=== PATIENT | female | born 1955 | race Caucasian/White ===

== ENCOUNTER 2017-10-28 10:56 | Day surgery (SDC) | payer OTHER ==
[2017-10-28] MEDS ORDERED: LACTATED RINGERS 1,000 ML IV ONE (10:58)
[2017-10-28] MEDS ORDERED: MIDAZOLAM 2 MG/2 ML VIAL IVP ONE (12:17)
[2017-10-28] MEDS ORDERED: fentaNYL 100 MCG/2 ML VIAL IVP ONE (12:17)
[2017-10-28 13:16] VITALS: BP 114/62
== END 2017-10-28 10:57 | disposition home or self-care (01) ==
LOC: SDS 10:56
PROVIDERS: ATTEND Internal Medicine
PROC: 0DBN8ZX Excision of Sigmoid Colon, Via Natural or Artificial Opening Endoscopic, Diagnostic (ICD-10-PCS; principal; 2017-10-28 12:00)
DX: Z12.11 Encounter for screening for malignant neoplasm of colon (principal); D12.5 Benign neoplasm of sigmoid colon; K64.8 Other hemorrhoids; K63.89 Other specified diseases of intestine
CPT/HCPCS: 45385; J7120

== ENCOUNTER 2019-03-02 08:00 | Outpatient (CLI) | payer OTHER ==
[2019-03-02 17:45] LABS: BASOPHILS % (AUTO) 0.4 %; EOSINOPHILS # (AUTO) 0.1 10^3/uL (0.0-0.7); EOSINOPHILS % (AUTO) 1.2 %; HGB - HEMOGLOBIN 12.9 g/dL (12.0-16.0); LYMPHOCYTES # (AUTO) 1.2 10^3/uL (1.5-3.5); LYMPHOCYTES % (AUTO) 21.3 %; MEAN CORPUSCULAR HEMOGLOBIN 29.4 pg (27.0-31.0); MEAN CORPUSCULAR HGB CONC 32.5 g/dL (32.0-36.0); MEAN CORPUSCULAR VOLUME 90.5 fL (81.0-99.0); MONOCYTES # (AUTO) 0.6 10^3/uL (0.0-1.0); MONOCYTES % (AUTO) 10.2 %; NEUTROPHILS # (AUTO) 3.9 10^3/uL (1.5-6.6); NEUTROPHILS % (AUTO) 66.9 %; PLT - PLATELET COUNT 344 10^3/uL (130-450); RED CELL DISTRIBUTION WIDTH 13.7 % (12.0-15.0); WHITE BLOOD COUNT 5.8 x10^3/uL (4.8-10.8)
[2019-03-02 17:58] LABS: ALBUMIN 3.6 g/dL (3.2-5.5); ALBUMIN/GLOBULIN RATIO 1.2 (1.0-2.2); BILIRUBIN,TOTAL 0.4 mg/dL (0.2-1.0); CREATININE 0.6 mg/dL (0.4-1.0); TOTAL PROTEIN 6.5 g/dL (6.7-8.2)
== END 2019-03-02 23:59 | disposition home or self-care (01) ==
LOC: LAB.F 08:00
PROVIDERS: ATTEND Nurse Practitioner Family
DX: F41.9 Anxiety disorder, unspecified (principal)
CPT/HCPCS: 36415; 80053; 84443; 84481; 85025

== ENCOUNTER 2019-03-05 14:44 | Outpatient (CLI) | payer OTHER | END 2019-03-05 14:45 | disposition home or self-care (01) | LOC: RT 14:44 | PROVIDERS: ATTEND Nurse Practitioner Family | DX: R06.02 Shortness of breath (principal) | CPT/HCPCS: 93005 ==

== ENCOUNTER 2019-03-31 13:44 | Outpatient (CLI) | payer OTHER ==
--- NOTE | 2019-03-31 15:48 | CARDIAC PROCEDURE NOTE ---
DATE OF SERVICE: 03/31/2019 Physician: Jocelyn Méndez MD, [facility] INDICATION: Shortness of breath. CARDIAC RISK FACTORS: Postmenopausal status, possibly untreated hypertension, unknown cholesterol history, family history of heart disease. DESCRIPTION OF PROCEDURE: After signing informed consent, the patient underwent a Aleksander-protocol treadmill stress test. No imaging was ordered with this test. RESTING HEART RATE SITTIN. RESTING HEART RATE STANDIN. PEAK HEART RATE ACHIEVED WITH EXERCISE: 122 (77% predicted maximum heart rate for age). RESTING BLOOD PRESSURE SITTIN/87. RESTING BLOOD PRESSURE STANDIN/80. PEAK BLOOD PRESSURE ACHIEVED WITH EXERCISE: 188/70. The patient exercised for 6 minutes on a Aleksander-protocol treadmill stress test. She achieved a peak heart rate of 122 (77% PMHR) and 7.1 METS. The patient developed shortness of breath after 2 minutes of walking at stage 1. As she entered stage 2, she asked if she could "grunt, which helps her exercise". She described her perceived exertion at 14-15/20 on a Elizabet scale at peak. Oxygen saturation was 95% on room air at rest. As she first describes shortness of breath, at 2 minutes of exercise, her oxygen saturation dropped to 90% on room air. In the second stage, her oxygen saturation dropped to 86% on room air. The exercise was stopped because of desaturations. In recovery, her oxygen saturation was 87% at 1 minute and at 95% on room air by 2 minutes. Heart rate recovery was very slow: at 5 minutes post-exercise she was still tachycardic at a heart rate of 103. The blood pressure response was excessive, and the patient thinks it was from "being very nervous." She was tearful and crying during the exercise briefly. EKG AT REST: Normal sinus rhythm, rate 81, vertical QRS axis, flat T-waves in leads III and aVF, LVH voltage. EKG AT PEAK: Upsloping ST depressions in V4 through V6 (this is not specific for ischemia). SUMMARY 1. Abnormal resting EKG. 2. The patient developed shortness of breath early with exercise, and had documented desaturation to 86% on room air. She was only able to achieve 77% predicted maximum heart rate for age because of the shortness of breath and desaturations. Poor exercise tolerance. 3. No ischemic changes occurred at this level of exertion, however, this was not an adequate heart rate achieved to definitively rule out ischemic heart disease, ie. Non-diagnostic stress test. 4. Her baseline EKG shows a vertical axis and given her symptoms and desaturation, this is suggestive of significant pulmonary disease or an intracardiac shunt. Recommend further cardiac and pulmonary evaluation. 5. I called the patient's PCP and left a private, urgent voicemail to discuss these results. TD: 03/31/2019 14:50 MTDD
== END 2019-03-31 13:45 | disposition home or self-care (01) ==
LOC: DI 13:44
PROVIDERS: ATTEND Nurse Practitioner Family
DX: R06.02 Shortness of breath (principal); R94.31 Abnormal electrocardiogram [ECG] [EKG]
CPT/HCPCS: 93016; 93017; 93018

== ENCOUNTER 2019-04-03 14:25 | Emergency (ER) | payer OTHER ==
--- NOTE | 2019-04-03 15:33 | ED Physician Documentation ---
PD HPI DYSPNEA - Stated complaint Stated Complaint: SOA/ABD PX - Chief complaint Chief Complaint: Resp - History obtained from History obtained from: Patient, Family - History of Present Illness Timing - onset: How many months ago (2) Timing - onset during: Light activity Timing - duration: Months (2) Timing - details: Gradual onset, Still present Inciting event(s): Emotional event. No: URI Improved by: Rest Worsened by: Exertion Associated symptoms: Cough, Wheezing, Chest pain / discomfort Similar symptoms before: Has not had sx before Recently seen: Other - Additional information Additional information: 63-year-old female has developed increasing exertional dyspnea over the past 2 months and now she is not able to go more than 100 yards without having to come back home. She usually has been able to walk about 4 miles. She has been in to see Dr. Mauro here for exercise treadmill test about 3 days ago and the test was nondiagnostic as she desaturated with minimal exercise. The patient states that she does have a cough and does feel like she is having some trouble getting a full deep breath and she is being referred to a program aide group work for further work-up. She has not had an x-ray of her chest and she has not had pulmonary function tests or used an inhaler. She is worried about lung cancer as she has a feeling of something in her chest and she has lost weight. She also gives history of a daughter who is significantly disabled who is now living on her own in the [facility] as a transfer student. This is working well for the daughter but the patient herself is anxious about this. 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 Review of Systems Constitutional: reports: Fatigue, Weight Loss. denies: Fever Eyes: denies: Decreased vision Ears: denies: Ear pain Nose: denies: Congestion Throat: denies: Sore throat Cardiac: reports: Chest pain / pressure. denies: Palpitations, Pedal edema, Calf pain Respiratory: reports: Dyspnea, Cough, Wheezing. denies: Hemoptysis GI: denies: Abdominal Pain, Nausea, Vomiting : denies: Dysuria, Frequency Skin: denies: Rash Musculoskeletal: denies: Neck pain, Back pain, Extremity pain Neurologic: denies: Generalized weakness, Focal weakness, Numbness PD PAST MEDICAL HISTORY - Past Medical History Cardiovascular: None Respiratory: None Endocrine/Autoimmune: None GI: None : None Psych: Anxiety Musculoskeletal: None Derm: None - Present Medications Home Medications: Ambulatory Orders Medication Instructions Recorded Confirmed Multivitamin-Min/Iron/FA/Vit K 1 each PO DAILY 10/28/17 10/28/17 [Multi-Day Plus Minerals Tablet] - Allergies Allergies/Adverse Reactions: Allergies Allergy/AdvReac Type Severity Reaction Status Date / Time No Known Drug Allergies Allergy Verified 10/27/17 13:56 PD ED PE NORMAL - Vitals Vital signs reviewed: Yes (tachy and hypertensive) - General General: Alert and oriented X 3, Well developed/nourished, Other (Thin female that cries readily ) - HEENT HEENT: Atraumatic, PERRL, EOMI - Neck Neck: Supple, no meningeal sign, No bony TTP - Cardiac Cardiac: No murmur, Other (tachy ) - Respiratory Respiratory: No respiratory distress, Other (diminished breath sounds on right to the shoulder. ) - Abdomen Abdomen: Soft, Non tender - Back Back: No CVA TTP, No spinal TTP - Derm Derm: Normal color, Warm and dry, No rash - Extremities Extremities: No deformity, No edema - Neuro Neuro: Alert and oriented X 3, broke worker 2-12 intact, No motor deficit, No sensory deficit, Normal speech Eye Opening: Spontaneous Motor: Obeys Commands Verbal: Oriented GCS Score: 15 - Psych Psych: Other (mood is anxious and the affect is sad/labile) Results - Vitals Vitals: Vital Signs - 24 hr 04/03/19 04/03/19 04/03/19 14:27 17:30 19:00 Temperature 36.8 C Heart Rate 103 H 89 Respiratory 18 20 Rate Blood Pressure 162/98 H 129/92 H 171/91 H O2 Saturation 99 97 04/03/19 04/03/19 04/03/19 19:12 19:14 19:15 Temperature Heart Rate 113 H 85 108 H Respiratory 18 Rate Blood Pressure 128/88 H 165/99 H O2 Saturation 95 98 100 Oxygen O2 Source Room air - EKG (time done) 1432 Rate: Rate (enter#) (97) [place]: RAD QRS: LVH Ischemia: Non specific changes Compare to prior EKG: Changed from prior EKG (SPT 03-05-2019 LVH and RAD have occurred. ) Computer interpretation: Agree with computer - Labs Labs: Microbiology 04/03/19 17:25 Body Fluid Culture - Preliminary Thoracentesis Laboratory Tests 04/03/19 04/03/19 04/03/19 15:30 15:30 15:30 WBC 7.2 RBC 4.63 Hgb 13.4 Hct 41.7 MCV 90.1 MCH 28.9 MCHC 32.1 RDW 12.7 Plt Count 452 H MPV 8.7 Neut # (Auto) 4.8 Lymph # (Auto) 1.7 [place] # (Auto) 0.6 Eos # (Auto) 0.1 Baso # (Auto) 0.0 Absolute Nucleated RBC 0.00 Nucleated RBC % 0.0 Sodium 133 L Potassium 4.1 Chloride 96 L Carbon Dioxide 24 Anion Gap 13.0 BUN 13 Creatinine 0.6 Estimated GFR (MDRD) 101 Glucose 166 H Calcium 9.0 Total Bilirubin < 0.2 L AST 21 ALT 28 Alkaline Phosphatase 125 H Lactate Dehydrogenase Troponin I < 0.04 B-Natriuretic Peptide Total Protein 7.1 Albumin 3.6 Globulin 3.5 Albumin/Globulin Ratio 1.0 Lipase 28 Urine Color Urine Clarity Urine pH Ur Specific [place] Urine Protein Urine Glucose (UA) Urine Ketones Urine Occult Blood Urine Nitrite Urine Bilirubin Urine Urobilinogen Ur Leukocyte Esterase Ur Microscopic Review Urine Culture Comments Fluid Source Fluid Color Fluid Clarity Fluid WBC Fluid RBC Fluid Neutrophils % Fluid Lymphocytes % Fld Mesothelial Cell % 04/03/19 04/03/19 04/03/19 15:30 15:30 16:00 WBC RBC Hgb Hct MCV MCH MCHC RDW Plt Count MPV Neut # (Auto) Lymph # (Auto) [place] # (Auto) Eos # (Auto) Baso # (Auto) Absolute Nucleated RBC Nucleated RBC % Sodium Potassium Chloride Carbon Dioxide Anion Gap BUN Creatinine Estimated GFR (MDRD) Glucose Calcium Total Bilirubin AST ALT Alkaline Phosphatase Lactate Dehydrogenase 164 Troponin I B-Natriuretic Peptide 29 Total Protein Albumin Globulin Albumin/Globulin Ratio Lipase Urine Color YELLOW Urine Clarity CLEAR Urine pH 5.0 Ur Specific [place] >=1.030 H Urine Protein NEGATIVE Urine Glucose (UA) NEGATIVE Urine Ketones NEGATIVE Urine Occult Blood TRACE-INTA Urine Nitrite NEGATIVE Urine Bilirubin NEGATIVE Urine Urobilinogen 0.2 (NORMAL) Ur Leukocyte Esterase NEGATIVE Ur Microscopic Review NOT INDICATED Urine Culture Comments NOT INDICATED Fluid Source Fluid Color Fluid Clarity Fluid WBC Fluid RBC Fluid Neutrophils % Fluid Lymphocytes % Fld Mesothelial Cell % 04/03/19 17:25 WBC RBC Hgb Hct MCV MCH MCHC RDW Plt Count MPV Neut # (Auto) Lymph # (Auto) [place] # (Auto) Eos # (Auto) Baso # (Auto) Absolute Nucleated RBC Nucleated RBC % Sodium Potassium Chloride Carbon Dioxide Anion Gap BUN Creatinine Estimated GFR (MDRD) Glucose Calcium Total Bilirubin AST ALT Alkaline Phosphatase Lactate Dehydrogenase Troponin I B-Natriuretic Peptide Total Protein Albumin Globulin Albumin/Globulin Ratio Lipase Urine Color Urine Clarity Urine pH Ur Specific [place] Urine Protein Urine Glucose (UA) Urine Ketones Urine Occult Blood Urine Nitrite Urine Bilirubin Urine Urobilinogen Ur Leukocyte Esterase Ur Microscopic Review Urine Culture Comments Fluid Source PERITONEAL Fluid Color RED Fluid Clarity CLOUDY Fluid WBC 344 Fluid RBC [id number] Fluid Neutrophils % 8 Fluid Lymphocytes % 82 Fld Mesothelial Cell % 10 - Rads (name of study) CT chest with Radiology: Prelim report reviewed (Impression: Large right-sided pleural effusion with clear fluid attenuation, no septation or loculation. Significant costal, mediastinal and diaphragmatic pleural nodularity, concerning for pleural metastatic disease. Enlarged superior mediastinal and subcarinal lymph node. Near atelectasis of right lung. No intraoral bronchial mass or mucoid. A 6 mm scarlike nodular opacity in the subpleural left lower lobe, likely benign.), EMP read indepedently, See rad report chest post thoracentesis Radiology: Prelim report reviewed (Impression: No pneumothorax.), EMP read indepedently, See rad report Procedures - Thoracentesis Preparation: Consent obtained, Sterile prep and drape, Sitting, Local - lidocaine Technique: Catheter over needle, Intercostal space - enter (7), Midscapular line, Right Fluid: Bloody, Sent for cell count, Sent for gram stain, Sent for culture, Sent for LDH, Sent fluid:serum LDH, Sent fluid:serum protein, Sent for cytology Aftercare: CXR obtained, No pneumo, No complications, Patient tolerated well, Dressing applied - Bedside sono Bedside sono by EMP: With the use of bedside ultrasound the chest is imaged and there appears to be fluid in the right lung space to the shoulder. PD MEDICAL DECISION MAKING - ED course Complexity details: reviewed old records, reviewed results, re-evaluated patient, considered differential, d/w patient ED course: 63-year-old female with undifferentiated shortness of breath has had an exercise treadmill test which she failed for early desaturations and poor exercise performance and she arrives to the emergency department today with persistent exertional shortness of breath. On examination she has diminished breath sounds on the right side and bedside ultrasound shows pleural effusion to the shoulder. 1500ml of bloody pleural fluid are removed from the pleural cavity and sent for cytology with negative gram stain. The patient has improvement in breathing and the [facility] triage doctor is consulted for disposition and Dr. Montero is able to arrange for both IR and Oncology to contact the patient for follow up. The patient is improved at discharge. Departure - Departure Disposition: 01 Home, Self Care Clinical Impression: Pleural effusion on right Condition: Stable Instructions: ED Effusion Pleural Follow-Up: [facility] [Provider Group] [facility] [Provider Group] Comments: I spoke with Dr Montero at [facility]. He put in referrals for Oncology and Interventional Radiology. Both of these services should be contacting the patient, but he gave me the following phone numbers to share with her if she has not heard from them in the next few days. Onc: [phone] IR: [phone] Discharge Date/Time: 04/03/19 19:08
[2019-04-03 15:38] LABS: BASOPHILS % (AUTO) 0.4 %; EOSINOPHILS # (AUTO) 0.1 10^3/uL (0.0-0.7); EOSINOPHILS % (AUTO) 0.8 %; HGB - HEMOGLOBIN 13.4 g/dL (12.0-16.0); LYMPHOCYTES # (AUTO) 1.7 10^3/uL (1.5-3.5); MEAN CORPUSCULAR HEMOGLOBIN 28.9 pg (27.0-31.0); MEAN CORPUSCULAR HGB CONC 32.1 g/dL (32.0-36.0); MEAN CORPUSCULAR VOLUME 90.1 fL (81.0-99.0); MEAN PLATELET VOLUME 8.7 fL (7.9-10.8); MONOCYTES # (AUTO) 0.6 10^3/uL (0.0-1.0); MONOCYTES % (AUTO) 8.9 %; NEUTROPHILS # (AUTO) 4.8 10^3/uL (1.5-6.6); NEUTROPHILS % (AUTO) 66.8 %; PLT - PLATELET COUNT 452 10^3/uL (130-450); RED BLOOD COUNT 4.63 10^6/uL (4.20-5.40); RED CELL DISTRIBUTION WIDTH 12.7 % (12.0-15.0); WHITE BLOOD COUNT 7.2 x10^3/uL (4.8-10.8)
[2019-04-03 15:50] LABS: ALBUMIN 3.6 g/dL (3.2-5.5); ALKALINE PHOSPHATASE 125 IU/L (42-121); ALT ALANINE AMINOTRANSFERASE 28 IU/L (10-60); AST ASPARTATE AMINOTRANSFERASE 21 IU/L (10-42); BILIRUBIN,TOTAL < 0.2 mg/dL (0.2-1.0); BUN - BLOOD UREA NITROGEN 13 mg/dL (6-20); CARBON DIOXIDE - CO2 24 mmol/L (21-32); CHLORIDE 96 mmol/L (101-111); CREATININE 0.6 mg/dL (0.4-1.0); GFR - MDRD 101 (>89); GLUCOSE 166 mg/dL (70-100); LIPASE 28 U/L (22-51); SODIUM 133 mmol/L (135-145); TOTAL PROTEIN 7.1 g/dL (6.7-8.2)
[2019-04-03] MEDS ORDERED: IOVERSOL 320 100 ML VIAL IVP ONE ×2 (15:55→16:32)
[2019-04-03 16:10] LABS: BILIRUBIN,URINE NEGATIVE (NEGATIVE); GLUCOSE, URINE (UA) NEGATIVE (NEGATIVE); KETONES,URINE (UA) NEGATIVE (NEGATIVE); LEUKOCYTE ESTERASE, URINE NEGATIVE (NEGATIVE); NITRITE,URINE NEGATIVE (NEGATIVE); OCCULT BLOOD,URINE TRACE-INTA (NEGATIVE); PROTEIN,URINE NEGATIVE (NEGATIVE); UROBILINOGEN,URINE 0.2 (NORMAL) E.U./dL (NORMAL)
[2019-04-03 16:12] LABS: CLARITY,URINE CLEAR (CLEAR)
--- NOTE | 2019-04-03 17:03 | CT Report ---
Reason: R pleural effusion on bedside u/s Procedure Date: 04/03/2019 Accession Number: [id number] / [id number] Procedure: CT - CHEST W CPT Code: FULL RESULT: EXAM: CT CHEST EXAM DATE: 04/03/2019 04:30 PM. CLINICAL HISTORY: R pleural effusion on bedside u/s. COMPARISONS: CHEST W/WO 04/03/2019 4:07 PM. TECHNIQUE: Routine helical CT imaging was performed through the chest. IV contrast: None. Reconstructions: Coronal and sagittal. In accordance with CT protocol optimization, one or more of the following dose reduction techniques were utilized for this exam: automated exposure control, adjustment of mA and/or KV based on patient size, or use of iterative reconstructive technique. FINDINGS: Lungs/Pleura: A large right-sided pleural effusion with clear fluid attenuation noted. No septation or loculation. Near complete atelectasis of right lung noted per There is enhancing pleural nodularity along costal, mediastinal and diaphragmatic pleural surfaces. Nodules measure up to 2.5 cm. Nodules are seen on image 16, 31, 43, 49, 64 on series 3). A 6 mm scarlike nodular opacity seen in subpleural left lower lobe. (Image 43 on series 4). Mediastinum: Enlarged superior mediastinal lymph nodes seen, a larger pretracheal lymph node measures 16 mm. Enlarged subcarinal lymph node measures 13 mm. The heart and great vessels are normal. Bones: Unremarkable. Visualized Abdomen: Unremarkable. Other: None. IMPRESSION: Large right-sided pleural effusion with clear fluid attenuation, no septation or loculation. Significant costal, mediastinal and diaphragmatic pleural nodularity, concerning for pleural metastatic disease. Enlarged superior mediastinal and subcarinal lymph node. Near atelectasis of right lung. No intrabronchial mass or mucoid. A 6 mm scarlike nodular opacity in subpleural left lower lobe, likely benign. RADIA
[2019-04-03 18:00] LABS: BF COLOR RED; BF SOURCE PERITONEAL; CC,BF RBC 130000 /mm^3
--- NOTE | 2019-04-03 18:59 | ED Physician Documentation ---
ED Addendum - Addendum Addendum: 04/03/19 18:[address] Torres's note for primary history and physical. She was signed over to me at shift change pending follow-up call from [facility] to arrange for follow- up. I spoke with Dr Montero at [facility]. He put in referrals for Onc and IR. Both of these services should be contacting the patient, but he gave me the following phone numbers to share with her if she has not heard from them in the next few days. Onc: [phone] IR: [phone] She is discharged in stable condition
[2019-04-03 19:02] LABS: LYMPHOCYTES %,BODY FLUID 82; MESOTHELIAL %, BF 10 %
--- NOTE | 2019-04-03 19:14 | XRAY Report ---
Reason: post thoracentesis Procedure Date: 04/03/2019 Accession Number: [id number] / [id number] Procedure: XR - Chest 1 View X-Ray CPT Code: 25286 FULL RESULT: EXAM: CHEST RADIOGRAPHY EXAM DATE: 04/03/2019 05:38 PM. CLINICAL HISTORY: Post thoracentesis. COMPARISON: CHEST W/WO 04/03/2019 4:09 PM. TECHNIQUE: 1 view. FINDINGS: The right pleural effusion has decreased, now moderate in size. Reexpansion of the right upper lobe. No pneumothorax visualized. Right paraspinal/mediastinal soft tissue thickening is grossly similar. Left lung is clear. Normal heart size. IMPRESSION: No pneumothorax. RADIA
[2019-04-03] MEDS: DEXTROSE 5%-0.9% NACL 1,000 ML IV ONE ×2 (19:15→19:34)
[2019-04-03 19:16] VITALS: BP 165/99
== END 2019-04-03 19:08 | disposition home or self-care (01) ==
LOC: ED 14:25
DX: J90 Pleural effusion, not elsewhere classified (principal)
CPT/HCPCS: 32554; 36415; 71045; 71260; 80053; 81003; 81599; 83615; 83690; 83880; 84484; 85025; 87070; 87205; 89051; 93005; 99284; Q9967; 81001; 87086

== ENCOUNTER 2019-04-21 11:45 | Outpatient (CLI) | payer OTHER ==
[2019-04-21 17:20] LABS: BASOPHILS % (AUTO) 0.3 %; EOSINOPHILS % (AUTO) 0.7 %; HGB - HEMOGLOBIN 13.3 g/dL (12.0-16.0); LYMPHOCYTES # (AUTO) 1.1 10^3/uL (1.5-3.5); LYMPHOCYTES % (AUTO) 19.4 %; MEAN CORPUSCULAR HEMOGLOBIN 29.5 pg (27.0-31.0); MEAN CORPUSCULAR VOLUME 92.2 fL (81.0-99.0); MEAN PLATELET VOLUME 9.4 fL (7.9-10.8); MONOCYTES # (AUTO) 0.7 10^3/uL (0.0-1.0); MONOCYTES % (AUTO) 11.6 %; NEUTROPHILS # (AUTO) 3.9 10^3/uL (1.5-6.6); NEUTROPHILS % (AUTO) 67.7 %; PLT - PLATELET COUNT 420 10^3/uL (130-450); RED BLOOD COUNT 4.51 10^6/uL (4.20-5.40); RED CELL DISTRIBUTION WIDTH 12.8 % (12.0-15.0); WHITE BLOOD COUNT 5.8 x10^3/uL (4.8-10.8)
[2019-04-21 17:34] LABS: ALBUMIN 3.3 g/dL (3.2-5.5); ALBUMIN/GLOBULIN RATIO 1.1 (1.0-2.2); BILIRUBIN,TOTAL 0.7 mg/dL (0.2-1.0); CALCIUM 8.7 mg/dL (8.5-10.3); CREATININE 0.6 mg/dL (0.4-1.0); TOTAL PROTEIN 6.3 g/dL (6.7-8.2)
== END 2019-04-21 11:46 | disposition home or self-care (01) ==
LOC: LAB.S 11:45
PROVIDERS: ATTEND Nurse Practitioner Family
DX: J90 Pleural effusion, not elsewhere classified (principal); C56.9 Malignant neoplasm of unspecified ovary; Z77.018 Contact with and (suspected) exposure to other hazardous metals
CPT/HCPCS: 36415; 80053; 81599; 82108; 85025; 86304; 86635

== ENCOUNTER 2019-04-23 11:57 | Outpatient (CLI) | payer OTHER ==
--- NOTE | 2019-04-23 13:21 | Ultrasound Report ---
Reason: MALIGNANT NEOPLASM OF UNSPECIFIED OVARY Procedure Date: 04/23/2019 Accession Number: [id number] / [id number] Procedure: US - Pelvic w/Transvaginal CPT Code: FULL RESULT: EXAM: PELVIC ULTRASOUND EXAM DATE: 04/23/2019 12:04 PM. CLINICAL HISTORY: Suspected ovarian malignancy. Elevated CA 125 COMPARISON: None available. TECHNIQUE: Realtime transabdominal pelvic scan performed to identify the uterus and adnexa and as an overview of other pelvic structures, followed by transvaginal scan to provide greater detail of the uterus and adnexa, with static image documentation. FINDINGS: The exam is somewhat limited by stool-filled bowel within the pelvis. Uterus: 5.2 x 2.4 x 4.3 cm, volume 29 cc. Anteverted position. Normal overall size and echotexture. Masses: None. Endometrium: 1.3 mm. Normal. Cervix: Unremarkable. Right Ovary: 2.1 x 1.2 x 1.6 cm, volume 2.1 cc. Normal echotexture and blood flow. Left Ovary: 1.8 x 0.9 x 1.1 cm, volume 1.0 cc. Normal echotexture and blood flow. Free Fluid: None. Other: None. IMPRESSION: Visualization of the ovaries somewhat limited by stool-filled bowel in the pelvis. No definite abnormality of the ovaries visualized. Given clinical history, recommend further evaluation with contrast-enhanced pelvis MRI. RADIA
== END 2019-04-23 11:58 | disposition home or self-care (01) ==
LOC: DI 11:57
PROVIDERS: ATTEND Nurse Practitioner Family
DX: C56.9 Malignant neoplasm of unspecified ovary (principal)
CPT/HCPCS: 76830; 76856

== ENCOUNTER 2019-04-28 15:07 | Outpatient (CLI) | payer OTHER ==
--- NOTE | 2019-04-28 16:25 | XRAY Report ---
Reason: SHORTNESS OF BREATH Procedure Date: 04/28/2019 Accession Number: [id number] / [id number] Procedure: XRS - Chest 2 View X-Ray CPT Code: 92741 FULL RESULT: EXAM: CHEST RADIOGRAPHY EXAM DATE: 04/28/2019 03:27 PM. CLINICAL HISTORY: Shortness of breath. COMPARISON: CHEST 1 VIEW 04/03/2019 5:26 PM. TECHNIQUE: 2 views. FINDINGS: Lungs/Pleura: Interval complete opacification of the right hemithorax, presumably due to effusion, working diagnosis of malignant effusion. Left lung is essentially clear. No left pleural effusion, no pneumothorax. Mediastinum: Mild mediastinal shift to the left. Other: None. IMPRESSION: Large right pleural effusion. The findings were discussed over the phone with the patient at the time of image acquisition. The need for thoracentesis was discussed. The patient expressed preference for routine basis thoracentesis. To this end, I personally went to the [facility] to request a possible order for thoracentesis from her oncologic physician, and a message was left with the primary physician with request for the order for ultrasound-guided thoracentesis. Plan is for the patient to undergo ultrasound-guided thoracentesis on 04/29/2019 at 9:15 am. The patient has instructions that if there is difficulty breathing, she should report to the Emergency Room for emergent thoracentesis. At the time of our conversation she was in no apparent respiratory distress but found breathing less comfortable than she is used to. RADIA
== END 2019-04-28 15:08 | disposition home or self-care (01) ==
LOC: DI.S 15:07
PROVIDERS: ATTEND Nurse Practitioner Family
DX: J90 Pleural effusion, not elsewhere classified (principal); R06.02 Shortness of breath
CPT/HCPCS: 71046

== ENCOUNTER 2019-04-29 07:26 | Outpatient (CLI) | payer OTHER ==
[2019-04-29] MEDS ORDERED: BUFFERED LIDOCAINE 10 ML SYRINGE ONE (09:31)
--- NOTE | 2019-04-29 12:39 | Ultrasound Report ---
Reason: ABN CXR Procedure Date: 04/29/2019 Accession Number: [id number] / [id number] Procedure: US - Thoracentesis Puncture CPT Code: FULL RESULT: EXAM: ULTRASOUND-GUIDED THORACENTESIS EXAM DATE: 04/29/2019 11:17 AM. CLINICAL HISTORY: Abnormal chest x-ray. COMPARISON: None. TECHNIQUE: Risks, benefits and alternatives to the procedure were discussed with the patient. All questions answered. Written and verbal consent obtained. Patient was placed in the sitting position and the skin overlying the effusion marked with sonographic guidance. The skin was sterilely prepped and draped, and 1% buffered lidocaine was used for local anesthesia. An 18-gauge valved catheter needle combination was advanced into the pleural space and fluid aspirated. Upon completion, the catheter was removed. FINDINGS: A total of 3000 mL of fluid was removed without immediate complication. Patient tolerated procedure well. IMPRESSION: Ultrasound-guided thoracentesis without immediate complications. RADIA
[2019-04-29] MEDS ORDERED: BUFFERED LIDOCAINE 10 ML SYRINGE IU ONE (16:11)
--- NOTE | 2019-04-29 18:21 | XRAY Report ---
Reason: S/P THORACENTISIS Procedure Date: 04/29/2019 Accession Number: [id number] / [id number] Procedure: XR - Chest 2 View X-Ray CPT Code: 47475 FULL RESULT: EXAM: CHEST RADIOGRAPHY EXAM DATE: 04/29/2019 10:51 AM. CLINICAL HISTORY: Right pleural effusion. COMPARISON: CHEST 2 VIEW 04/28/2019 3:27 PM. TECHNIQUE: 2 views. FINDINGS: Lungs/Pleura: Previous large right pleural effusion has significantly improved. Small residual right apical and right basilar hydropneumothorax is seen, suspect due to underlying lung entrapment. Patchy upper and lower lung airspace disease is seen. The left lung is clear. Mediastinum: Heart and mediastinal contours are unremarkable. Other: None. IMPRESSION: Significant improvement in previous large right pleural effusion with small right hydropneumothorax seen, suspect due to lung entrapment/pleural scarring. RADIA
--- NOTE | 2019-04-29 19:00 | XRAY Report ---
Reason: S/P Thoracentisis this AM Procedure Date: 04/29/2019 Accession Number: [id number] / [id number] Procedure: XR - Chest 2 View X-Ray CPT Code: 85275 FULL RESULT: EXAM: CHEST RADIOGRAPHY EXAM DATE: 04/29/2019 06:42 PM. CLINICAL HISTORY: S/P Thoracentesis this AM. COMPARISON: CHEST 2 VIEW 04/29/2019 10:45 AM CHEST W/WO 04/03/2019 4:09 PM. TECHNIQUE: 2 views, inspiration and expiration. FINDINGS IMPRESSION: Increasing moderate right pneumothorax. Up to 2.1 cm pleural separation at the base. The fluid component of the hydropneumothorax is similar. Increasing nonspecific right mid and lower lung opacities. Nodular densities along the right pleural space. Left lung clear. Comment: Discussed with the x-ray technologist at the time of the exam and advised to send the patient to the emergency department. RADIA
== END 2019-04-29 07:27 | disposition home or self-care (01) ==
LOC: DI 07:26
PROVIDERS: ATTEND Internal Medicine Hematology & Oncology
DX: C56.9 Malignant neoplasm of unspecified ovary (principal); J91.0 Malignant pleural effusion; J95.811 Postprocedural pneumothorax
CPT/HCPCS: 32555; 71046

== ENCOUNTER 2019-04-29 07:27 | Outpatient (CLI) | payer OTHER ==
[2019-04-29 08:37] LABS: INR 1.2 (0.8-1.2); PT - PROTHROMBIN TIME 13.9 secs (9.9-12.6)
[2019-04-29 08:44] LABS: PARTIAL THROMBOPLASTIN TIME 30.2 secs (24.9-33.3)
[2019-04-29] MEDS ORDERED: GADOBUTROL 7.5 MMOL/7.5 ML VIAL ONE (18:10)
[2019-04-29] MEDS ORDERED: GADOBUTROL 7.5 MMOL/7.5 ML VIAL IV ONE (18:13)
--- NOTE | 2019-05-03 13:56 | MRI Report ---
Reason: MALIGNANT NEOPLASM OF UNSPECIFIED OVARY Procedure Date: 04/29/2019 Accession Number: [id number] / [id number] Procedure: MRI - Pelvis W/WO CPT Code: FULL RESULT: EXAM: MR PELVIS WITH AND WITHOUT CONTRAST (MR FEMALE PELVIS) EXAM DATE: 04/29/2019 06:23 PM. CLINICAL HISTORY: Malignant neoplasm of unspecified ovary. Postmenopausal. COMPARISON: PELVIC W/TRANSVAGINAL 04/23/2019 12:04 PM. TECHNIQUE: Multiplanar breath-hold T1, T2 obtained through the pelvis on an MR scanner. Images obtained before and after administration of 5.5 mL of Gadavist intravenous contrast. FINDINGS: Reproductive Organs: Uterus: The uterus is anteverted and measures 5 x 2.1 x 4.5 cm with volume 24.6 cc. The endometrial stripe measures 2-3 mm. No distinct uterine masses are identified. Cervical mucosal contour appears unremarkable. Right Ovary: Structure in the right adnexa which may represent the right ovary is seen measuring 1.2 x 1.1 x 1.3 cm with volume 0.9 cc. Right ovary is small in volume. No definitive evidence of a separate adnexal mass. Left Ovary: Structure in the left adnexa which may represent the left ovary is seen measuring 1.2 x 0.7 x 1.8 cm with volume 0.8 cc. Left ovary is small in volume. No definitive evidence of a separate left adnexal mass. Bowel: Included portions of the small bowel and colon appear unremarkable. There is a small volume of pelvic free fluid. No enlarged pelvic lymph nodes are identified. Bladder: Urinary bladder mildly distended and unremarkable. Other: No osseous lesions are identified. Degenerative changes of the lower lumbar spine and both hip joints. IMPRESSION: 1. Normal postmenopausal appearance of the uterus. Right and left adnexal structures which may represent the ovaries which appear small. No other distinct adnexal masses are identified. 2. Small volume of pelvic free fluid. 3. No pelvic adenopathy. RADIA
== END 2019-04-29 07:28 | disposition home or self-care (01) ==
LOC: DI 07:27
PROVIDERS: ATTEND Nurse Practitioner Family
DX: C56.9 Malignant neoplasm of unspecified ovary (principal)
CPT/HCPCS: 36415; 72197; 85610; 85730

== ENCOUNTER 2019-04-29 18:51 | Observation (INO) | payer OTHER ==
--- NOTE | 2019-04-29 21:31 | ED Physician Documentation ---
History of Present Illness - Stated complaint Stated Complaint: CHEST TINGLING - Chief complaint Chief Complaint: Resp - History obtained from History obtained from: Patient - History of Present Illness Timing: Today Pain level now: 0 Worsened by: rapid and deep inspiration (causes her to cough) - Additonal information Additional information: T+R from this ED last month for dyspnea and discharged from ED after right thoracentesis. 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 She had repeat thoracentesis this morning, as the right pleural effusion had reaccumulated . Post-procedure CXR revealed small right pneumothorax. She was advised to have repeat CXR this evening, and this reveals worsening right pneumothorax and thus she was advised to check into ED. She denies chest pain, dyspnea. She only has brief coughing if she takes a rapid deep breath in. Review of Systems Constitutional: denies: Fever Cardiac: reports: Reviewed and negative Respiratory: reports: Reviewed and negative GI: reports: Reviewed and negative PD PAST MEDICAL HISTORY - Past Medical History Cardiovascular: None Respiratory: None Endocrine/Autoimmune: None GI: None : None Psych: Anxiety Musculoskeletal: None Derm: None - Past Surgical History Past Surgical History: Yes - Present Medications Home Medications: Ambulatory Orders Medication Instructions Recorded Confirmed Multivitamin-Min/Iron/FA/Vit K 1 each PO DAILY 10/28/17 10/28/17 [Multi-Day Plus Minerals Tablet] - Allergies Allergies/Adverse Reactions: Allergies Allergy/AdvReac Type Severity Reaction Status Date / Time No Known Drug Allergies Allergy Verified 04/29/19 18:59 - Social History Does the pt smoke?: No Smoking Status: Never smoker - POLST Patient has POLST: No PD ED PE NORMAL - Vitals Vital signs reviewed: Yes - General General: Alert and oriented X 3, No acute distress, Well developed/nourished - HEENT HEENT: Moist mucous membranes - Cardiac Cardiac: RRR, No murmur - Respiratory Respiratory: No respiratory distress - Abdomen Abdomen: Soft, Non tender - Extremities Extremities: No edema PD ED PE EXPANDED - Respiratory Respiratory: Decreased breath sounds (right hemithorax) Results - Vitals Vitals: Vital Signs - 24 hr 04/29/19 04/29/19 04/29/19 18:57 20:01 21:47 Temperature 36.2 C L 37.7 C H Heart Rate 96 95 85 Respiratory 16 20 Rate Blood Pressure 129/83 H 113/75 119/74 O2 Saturation 96 87 L 04/29/19 21:52 Temperature Heart Rate 85 Respiratory Rate Blood Pressure O2 Saturation 95 Oxygen O2 Source Room air PD MEDICAL DECISION MAKING - ED course Complexity details: reviewed old records, considered differential, d/w patient ED course: D/W Dr. Hendrickson, will admit for observation, repeat CXR, and supplemental oxygen to increase likelihood of/rapidity to improvement in ptx. Departure - Departure Disposition: ED Place in Observation Clinical Impression: Pneumothorax on right Condition: Stable Discharge Date/Time: 04/29/19 22:33
[2019-04-29] MEDS ORDERED: SODIUM CHLORIDE FLUSH 0.9% 10 ML SYRINGE IVP PRN (22:05)
[2019-04-30] MEDS: SODIUM CHLORIDE FLUSH 0.9% 10 ML SYRINGE IVP SCH ×2 (00:29→12:13)
[2019-04-30] MEDS ORDERED: POLYETHYLENE GLYCOL 3350 17 GM PACKET PO SCH (09:00)
[2019-04-30] MEDS ORDERED: GADOBUTROL 7.5 MMOL/7.5 ML VIAL ONE (09:23)
--- NOTE | 2019-04-30 11:38 | HISTORY & PHYSICAL EXAMINATION ---
Chief Complaint - Chief Complaint Chief Complaint: Pneumothorax History of Present Illness - Admitted From Admitted From:: Emergency Department - History Obtained From Records Reviewed: Prior admissions and visits with Oncology History obtained from: Dr. Upton and the patient Exam Limitations: None - History of Present Illness HPI Comment/Other: Rossana is a pleasant 63 year old lady who was seen in our ED recently for complaints of shortness of breath. 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 She has been seen by Dr. Washington and workup is ongoing. She had appointments for MRI of the abdomen and and pelvis yesterday as part of this workup. In the process of being seen for those studies, she was noted to have a recurrent effusion and had repeat thoracentesis. She had a small pnuemothorax after the procedure but as it did not enlarge over time and she was not symptomatic, she was discharged. Yesterday, she was found on xray to have a slightly larger pneumothorax (1cm increased to 2.5 cm). She was sent to the ED where she was seen by Dr. Upton. She is not symptomatic. She denied shortness of breath then as she does now. She was admitted to my service overnight for observation and supportive care. She has completed the planned MRIs this AM and denies any discomfort. She reports she has followup already scheduled with . She very much wants to go home. History - Past Medical History Cardiovascular: reports: None Respiratory: reports: None Endocrine/Autoimmune: reports: None GI: reports: None : reports: None Psych: reports: Anxiety Musculoskeletal: reports: None Derm: reports: None MRSA Hx?: Yes - POLST Patient has POLST: No Meds/Allgy - Home Medications Home Medications: Ambulatory Orders Medication Instructions Recorded Confirmed Multivitamin-Min/Iron/FA/Vit K 1 each PO DAILY 10/28/17 10/28/17 [Multi-Day Plus Minerals Tablet] - Allergies Allergies/Adverse Reactions: Allergies Allergy/AdvReac Type Severity Reaction Status Date / Time No Known Drug Allergies Allergy Verified 04/29/19 18:59 Review of Systems - Constitutional Constitutional: reports: Fatigue, Poor appetite, Weight loss. denies: Fever, Ch ills - Eyes Eyes: denies: Pain, Blurred vision - Ears, Nose & Throat Ears, Nose & Throat: denies: Tinnitus, Vertigo - Cardiovascular Cariovascular: reports: Lightheadedness, Exertional dyspnea. denies: Irregular heart rate, Palpitations, Chest pain, Edema, Syncope - Respiratory Respiratory: reports: SOB with exertion. denies: Cough, Sputum production, Wheezing, SOB at rest - Gastrointestinal Gastrointestinal: reports: Other (Had a recent colonoscopy by Dr. Boss). denies: Abdominal pain, Abdominal distention, Constipation, Diarrhea, Change in bowel habits - Genitourinary Genitourinary: denies: Dysuria - Musculoskeletal Musculoskeletal: denies: Muscle pain, Back pain - Integumentary Integumentary: denies: Rash, Pruritis, Lesions - Neurological Neurological: denies: General weakness, Focal weakness - Psychiatric Psychiatric: denies: Depression, Anxiety - Hematologic/Lymphatic Hematologic/Lymphatic: denies: Anemia, Bruising Exam - Vital Signs Reviewed Vital Signs: Yes Vital Signs: Vital Signs x48h Temp Pulse Pulse Resp BP Pulse Ox 04/30/19 08:31 36.6 C 80 18 113/69 98 04/30/19 05:20 36.5 C 78 18 99 04/30/19 04:14 36.5 C 78 18 115/73 99 - Physical Exam General Appearance: positive: No acute distress, Alert Eyes Bilateral: positive: Normal inspection, PERRL, EOMI ENT: positive: ENT inspection nml Neck: positive: Nml inspection, Thyroid nml, No JVD, Trachea midline Respiratory: positive: Chest non-tender, No respiratory distress, Other Cardiovascular: positive: Regular rate & rhythm, No murmur, No gallop Peripheral Pulses: positive: 1+ Abdomen: positive: Non-tender, Nml bowel sounds, Other (scaphoid abdomen). negative: Guarding, Rebound Conclusion/Plan - Problem List (1) Pneumothorax on right Conclusion/Plan: Discharge to home. As patient has no discomfort, she will not need any medication. She has follow up scheduled with Dr. Washington. She is instructed to return to the ED for any change or worsening of symptoms. - Lab Results Lab results reviewed: Yes - Diagnostic Imaging Results Diagnostic Imaging Results: positive: Discussed with radiologist, Read contemporaneously Diagnostic Imaging Results Comments: Right pneumothorax is stable compared to last nights study. There is a small right pleural effusion as well that appears comparable in size
--- NOTE | 2019-04-30 11:52 | Discharge Plan ---
Discharge Plan Problem Reviewed?: Yes Disposition: Home, Self Care Diet: Regular Activity Restrictions: No Restrictions Shower Restrictions: No Driving Restrictions: No Weight Bearing: Full Weight No Smoking: If you smoke, Please STOP! Call for help. Follow-up with: Dheeraj Jacob ARNP [Primary Care Provider] -
--- NOTE | 2019-04-30 11:55 | DISCHARGE SUMMARY ---
"Discharge Summary Admit Date: 04/29/19 Discharge Date: 04/30/19 Discharging Provider: Madhaiv Primary Care Provider: Kanwal Caceres Status: Attempt Resuscitation Condition at Discharge: Stable Discharge Disposition: 01 Home, Self Care - DIAGNOSES Admission Diagnoses: Right Pneumothorax Discharge Diagnoses with Status of Each Condition: Right Pneumothorax - stable - HPI History of Present Illness: Patient with new diagnosis of pleural effusion and recent thoracentesis developed a small right pneumothorax after procedure yesterday morning. - CONSULTS | PROCEDURES Consultations: None Procedures: None - HOSPITAL COURSE Hospital Course: Patient was admitted for observation and placed on high flow O2 and continuous pulse oximetry over night. She has been completely assymptomatic. Repeat studies show the right pneumothorax is unchanged. The patient has follow up arrange with Oncology at the [facility] clinic - ALLERGIES Allergies/Adverse Reactions: Allergies Allergy/AdvReac Type Severity Reaction Status Date / Time No Known Drug Allergies Allergy Verified 04/29/19 18:59 - MEDICATIONS Home Medications: Ambulatory Orders Medication Instructions Recorded Confirmed Multivitamin-Min/Iron/FA/Vit K 1 each PO DAILY 10/28/17 10/28/17 [Multi-Day Plus Minerals Tablet] - PHYSICAL EXAM AT DISCHARGE General Appearance: positive: No acute distress, Alert Eyes Bilateral: positive: Normal inspection, PERRL, EOMI ENT: positive: ENT inspection nml Neck: positive: Nml inspection Respiratory: positive: Chest non-tender, No respiratory distress, Other (Breath sound decreased on the right). negative: Breath sounds nml Cardiovascular: positive: Regular rate & rhythm Peripheral Pulses: positive: 1+ Abdomen: positive: Non-tender, Nml bowel sounds Back: positive: Nml inspection Skin: positive: Color nml, No rash Extremities: positive: Non-tender Neurologic/Psychiatric: positive: Oriented x3 - DIAGNOSTIC IMAGING Diagnostic Imaging Results: Prelim report reviewed, Read independently, Read contemporaneously Diagnostic Imaging Results Comments: Right pneumothorax and pleural effusion are stable in size and character. - QUALITY (Female Hip Fx Only) Was patient sent home on osteoporosis medication?: No - FOLLOW UP Follow Up: Previously scheduled with Dr. Washington - TIME SPENT Time Spent in Discharge (Minutes): 30"
[2019-04-30] MEDS ORDERED: GADOBUTROL 7.5 MMOL/7.5 ML VIAL IV ONE (12:33)
--- NOTE | 2019-04-30 13:13 | XRAY Report ---
Reason: pneumothorax Procedure Date: 04/30/2019 Accession Number: [id number] / [id number] Procedure: XR - Chest 2 View X-Ray CPT Code: 72879 FULL RESULT: EXAM: CHEST RADIOGRAPHY EXAM DATE: 04/30/2019 08:59 AM. CLINICAL HISTORY: Pneumothorax. COMPARISON: CHEST 2 VIEW 04/29/2019 6:36 PM CHEST W/WO 04/03/2019 4:09 PM. TECHNIQUE: 2 views. FINDINGS: Lungs/Pleura: Stable small to moderate right hydropneumothorax and right lung airspace opacities. Left lung clear. Mediastinum: No medial shift. Stable cardiothymic contour. Other: None. IMPRESSION: Stable small to moderate right hydropneumothorax and right lung airspace opacities. No mediastinal shift. RADIA
[2019-04-30 13:54] VITALS: BP 97/71
== END 2019-04-30 14:07 | disposition home or self-care (01) ==
LOC: ED 18:51 → MS2 22:05
PROVIDERS: ADMIT Surgery; ATTEND Surgery
DX: J95.811 Postprocedural pneumothorax (principal); J91.0 Malignant pleural effusion; F41.9 Anxiety disorder, unspecified; C56.9 Malignant neoplasm of unspecified ovary; R06.00 Dyspnea, unspecified
CPT/HCPCS: 32555; 36415; 71046; 72197; 85610; 85730; 93005; 99284; 99285; A9585; G0378

== ENCOUNTER 2019-08-12 10:06 | Outpatient (CLI) | payer OTHER ==
[2019-08-12 18:41] LABS: BASOPHILS # (AUTO) 0.1 10^3/uL (0.0-0.1); BASOPHILS % (AUTO) 0.7 %; EOSINOPHILS % (AUTO) 0.1 %; HGB - HEMOGLOBIN 10.5 g/dL (12.0-16.0); LYMPHOCYTES # (AUTO) 1.7 10^3/uL (1.5-3.5); LYMPHOCYTES % (AUTO) 22.9 %; MEAN CORPUSCULAR HEMOGLOBIN 27.5 pg (27.0-31.0); MEAN CORPUSCULAR HGB CONC 30.7 g/dL (32.0-36.0); MEAN CORPUSCULAR VOLUME 89.5 fL (81.0-99.0); MEAN PLATELET VOLUME 9.3 fL (7.9-10.8); MONOCYTES # (AUTO) 0.6 10^3/uL (0.0-1.0); MONOCYTES % (AUTO) 7.6 %; NEUTROPHILS % (AUTO) 68.3 %; PLT - PLATELET COUNT 675 10^3/uL (130-450); RED BLOOD COUNT 3.82 10^6/uL (4.20-5.40); RED CELL DISTRIBUTION WIDTH 16.4 % (12.0-15.0); WHITE BLOOD COUNT 7.4 x10^3/uL (4.8-10.8)
[2019-08-12 18:47] LABS: ALBUMIN 2.9 g/dL (3.2-5.5); ALBUMIN/GLOBULIN RATIO 0.8 (1.0-2.2); BILIRUBIN,TOTAL 0.3 mg/dL (0.2-1.0); CALCIUM 8.8 mg/dL (8.5-10.3); CREATININE 0.4 mg/dL (0.4-1.0); TOTAL PROTEIN 6.4 g/dL (6.7-8.2)
== END 2019-08-12 10:07 | disposition home or self-care (01) ==
LOC: LAB.S 10:06
PROVIDERS: ATTEND Nurse Practitioner Family
DX: F41.9 Anxiety disorder, unspecified (principal)
CPT/HCPCS: 36415; 80053; 84443; 85025

== ENCOUNTER 2019-08-12 11:16 | Outpatient (CLI) | payer OTHER | END 2019-08-12 11:17 | disposition critical access hospital (66) | LOC: EMS 11:16 | PROVIDERS: ATTEND Surgery | DX: R46.89 Other symptoms and signs involving appearance and behavior (principal) | CPT/HCPCS: A0425; A0429 ==

== ENCOUNTER 2019-08-12 11:48 | Emergency (ER) | payer OTHER ==
--- NOTE | 2019-08-12 12:45 | ED Physician Documentation ---
History of Present Illness - Stated complaint Stated Complaint: MANIC EPISODES - Chief complaint Chief Complaint: Neuro - Additonal information Additional information: This is a 64-year-old female with a history of mesothelioma and possible bipolar disorder who is brought in by her due to altered mental status. Patient reportedly has had some odd behavior over the last several days. She was seen in clinic this morning and she wrote a piece of paper to help her because she is being held captive. She tells me that she was held captive by her over the last several days and not been allowed to eat or drink. Her story then changes and says she has been only held captive since 8:55 AM this morning. She is unable to elaborate why she is been held captive. She denies suicidal ideation, homicidal ideation she denies headache, shortness of breath, chest pain, or abdominal pain. She denies drug or alcohol use. Reportedly she had a similar episode of strange behavior in the past due to a "nervous breakdown" and another episode where she was confused and she was found to have an aneurysm requiring craniotomy. She denies being on chemotherapy, reportedly she was previously on hospice care. She denies SI, HI, or hallucinations. Review of Systems Constitutional: denies: Fever Eyes: denies: Loss of vision Nose: denies: Rhinorrhea / runny nose Cardiac: denies: Chest pain / pressure Respiratory: denies: Dyspnea GI: denies: Abdominal Pain : denies: Dysuria Neurologic: denies: Generalized weakness Psychiatric: reports: Delusions PD PAST MEDICAL HISTORY - Past Medical History Cardiovascular: None Respiratory: None Endocrine/Autoimmune: None GI: None : None Psych: Anxiety Musculoskeletal: None Derm: None - Past Surgical History Past Surgical History: Yes - Present Medications Home Medications: Ambulatory Orders Medication Instructions Recorded Confirmed Multivit-Min/Iron/Folic Acid/K 1 each PO DAILY 10/28/17 05/10/19 [Multi-Day Plus Minerals Tablet] Cholecalciferol (Vitamin D3) 1,000 unit PO DAILY 05/10/19 05/10/19 [Vitamin D3] Cyanocobalamin (Vitamin B-12) 2,000 mcg PO DAILY 05/10/19 05/10/19 [Vitamin B-12] L.acid/L.casei/B.bif/B.tammi/Fos 1 cap PO BID 05/10/19 05/10/19 [Probiotic Blend Capsule] - Allergies Allergies/Adverse Reactions: Allergies Allergy/AdvReac Type Severity Reaction Status Date / Time No Known Drug Allergies Allergy Verified 08/12/19 11:53 - Social History Does the pt smoke?: No Smoking Status: Never smoker - POLST Patient has POLST: No PD ED PE NORMAL - Vitals Vital signs reviewed: Yes - General General: Alert and oriented X 3, Other (Thin appearing) - HEENT HEENT: Atraumatic, PERRL - Neck Neck: Supple, no meningeal sign - Cardiac Cardiac: Other (Tachycardic, regular rhythm) - Respiratory Respiratory: No respiratory distress, Clear bilaterally - Abdomen Abdomen: Soft, Non tender, Non distended - Extremities Extremities: No deformity - Neuro Neuro: Alert and oriented X 3, ekg manager 2-12 intact, No motor deficit, No sensory deficit, Normal speech - Psych Psych: Other (Patient is awake, alert, able to answer most questions appropriately, however she appears to have some likely delusional content in her speech, she talks of being held hostage but her story about this changes, And she seems to confabulate details such as timing. She also will say that she has not eaten or drank anything in days, and then say that she is eating quite well and she is just thirsty currently. She is oriented to person, place, date.) Results - Vitals Vitals: Vital Signs - 24 hr 08/12/19 08/12/19 08/12/19 15:00 17:17 19:14 Heart Rate 103 H 65 75 Respiratory 14 21 19 Rate Blood Pressure 120/83 H 118/81 H 119/78 O2 Saturation 100 97 98 Oxygen O2 Source Room air - Labs Labs: Laboratory Tests 08/12/19 08/12/19 08/12/19 11:50 12:49 12:49 WBC 6.7 RBC 4.07 L Hgb 11.1 L Hct 35.6 L MCV 87.5 MCH 27.3 MCHC 31.2 L RDW 16.4 H Plt Count 603 H MPV 8.3 Neut # (Auto) 4.7 Lymph # (Auto) 1.4 L [place] # (Auto) 0.6 Eos # (Auto) 0.0 Baso # (Auto) 0.0 Absolute Nucleated RBC 0.00 Nucleated RBC % 0.0 Sodium 134 L Potassium 4.0 Chloride 97 L Carbon Dioxide 28 Anion Gap 9.0 BUN 9 Creatinine 0.4 Estimated GFR (MDRD) 161 Glucose 87 Calcium 8.7 Total Bilirubin 0.3 AST 15 ALT 11 Alkaline Phosphatase 112 Total Protein 6.9 Albumin 3.2 Globulin 3.7 Albumin/Globulin Ratio 0.9 L Lipase 32 TSH Urine Color YELLOW Urine Clarity CLEAR Urine pH 6.0 Ur Specific [place] <=1.005 Urine Protein NEGATIVE Urine Glucose (UA) NEGATIVE Urine Ketones NEGATIVE Urine Occult Blood TRACE-LYSE Urine Nitrite NEGATIVE Urine Bilirubin NEGATIVE Urine Urobilinogen 0.2 (NORMAL) Ur Leukocyte Esterase NEGATIVE Ur Microscopic Review NOT INDICATED Urine Culture Comments NOT INDICATED Salicylates < 6.0 Urine Opiates Screen NEGATIVE Ur Oxycodone Screen NEGATIVE Urine Methadone Screen NEGATIVE Ur Propoxyphene Screen NEGATIVE Acetaminophen < 10 L Ur Barbiturates Screen NEGATIVE Ur Tricyclics Screen NEGATIVE Ur Phencyclidine Scrn NEGATIVE Ur Amphetamine Screen NEGATIVE U Methamphetamines Scrn NEGATIVE U Benzodiazepines Scrn NEGATIVE Urine Cocaine Screen NEGATIVE U Cannabinoids Screen NEGATIVE Ethyl Alcohol < 5.0 08/12/19 12:49 WBC RBC Hgb Hct MCV MCH MCHC RDW Plt Count MPV Neut # (Auto) Lymph # (Auto) [place] # (Auto) Eos # (Auto) Baso # (Auto) Absolute Nucleated RBC Nucleated RBC % Sodium Potassium Chloride Carbon Dioxide Anion Gap BUN Creatinine Estimated GFR (MDRD) Glucose Calcium Total Bilirubin AST ALT Alkaline Phosphatase Total Protein Albumin Globulin Albumin/Globulin Ratio Lipase TSH 2.05 Urine Color Urine Clarity Urine pH Ur Specific [place] Urine Protein Urine Glucose (UA) Urine Ketones Urine Occult Blood Urine Nitrite Urine Bilirubin Urine Urobilinogen Ur Leukocyte Esterase Ur Microscopic Review Urine Culture Comments Salicylates Urine Opiates Screen Ur Oxycodone Screen Urine Methadone Screen Ur Propoxyphene Screen Acetaminophen Ur Barbiturates Screen Ur Tricyclics Screen Ur Phencyclidine Scrn Ur Amphetamine Screen U Methamphetamines Scrn U Benzodiazepines Scrn Urine Cocaine Screen U Cannabinoids Screen Ethyl Alcohol - Rads (name of study) CXR Radiology: Other (Small to moderate right pleural effusion slightly increased from prior study, moderate right-sided infiltrate similar to prior exam, no pne umothorax, clear left lung.) CT head WO Radiology: Other (Chronic chagnes with no acute disease) PD MEDICAL DECISION MAKING - ED course Complexity details: considered differential (Delirirum, thyroid disturbance, psychosis, depression, electrolyte abnormality, ICH, encephalitis) ED course: On arrival pt is non-toxic and afebrile, she is overall appropriate and her neuro exam is normal, but she does have potentially delusion thought content about being held captive this morning by her . CBC is notable for mild anemia of 11.1, no leukocytosis. CMP shows slight hyponatremia 134, likely related to dehydration as patient appears slightly dry on exam. TSH is normal, remainder of her electrolytes are unremarkable. Urine is negative for infection, you tox is negative, ethanol is negative, salicylates and acetaminophen also undetectable. I spoke to her Erasmo. Pt has had a nervous breakdown 20 years ago. She also had an aneurysm in the past that required craniotomy. She from time to time will have manic episodes where she doesn't sleep and becomes hyperactive, but over the last 3 days her behavior has been stranger than usual and has been concerning. She has been fasting in an attempt to fight her cancer. She has been going outside and calling for old dog that is no longer alive. She also ran a fur blender for 30 minutes, and turned on all lights in house. Saw therapist Michell Nieves several days ago, Michell was concerned. Her [employer] thinks she needs psychological evaluation. Pt does not hold any obvious diagnosis with schizophrenia, depression, but may have bipolar disorder. She has been in psychotherapy for years. She is in hospice. Has had on and off mental instability since diagnosis of her mesothelioma in March, but nothing as consistent as last 3 days. She is a DNR, but is okay with interventions. Pt was observed in the ED and given food and water as she was hungry and thirsty. I re-evluated her and she is alert, and completely appropriate in conversation. She states that she has been fasting and not sleeping well, and this probably contributed to her thinking and acting strangely. She wants to go home, feels safe going home, and describes that this morning her was not so much holding her captive as trying to get her medically evaluated. She has no delusional thought content, no hallucinations, clearly has capacity. I discussed my concerns for delirium vs. psychiatric cause of her symptoms. She does not have signs of infection/encephalitis/brain mass at this time. Her XR is similar to past XRs. Pt does not want to stay for SW or DCR evaluation, and she has capacity and does not appear to be a danger to herself or others and is now acting normally and is not appropriate for involuntary hold. I discussed that she needs to return with any recurrent symtoms. I spoke to her who is in agreement with this plan and will bring her back if she develops recurrent significant symptoms or worsening. Pt was discharged home in the care of friends/ Departure - Departure Disposition: 01 Home, Self Care Clinical Impression: Altered mental state Qualifiers: Altered mental status type: unspecified Qualified Code(s): R41.82 - Altered mental status, unspecified Condition: Good Comments: You were seen today because you were a little confused earlier and have been having some strange behaviors. Your labs and scans today did not show any clear cause of this. I am not sure if this is due to a mental health issue, or if there is some underlying medical condition that may be causing you to intermittently feel confused. I am glad that you are feeling better now, but if you or having any worsening, or if your family or friends express their concern that you appear to be worsening, you need to be evaluated in the emergency department promptly. Also return to the emerge department if you are developing symptoms of bossman such as not sleeping, speaking rapidly, having increasingly impulsive behaviors, seeing or hearing things that are not there, or with any thoughts of harming yourself. Follow-up with your mental health professional as soon as possible. Discharge Date/Time: 08/12/19 19:19
[2019-08-12 12:54] LABS: BILIRUBIN,URINE NEGATIVE (NEGATIVE); GLUCOSE, URINE (UA) NEGATIVE (NEGATIVE); KETONES,URINE (UA) NEGATIVE (NEGATIVE); LEUKOCYTE ESTERASE, URINE NEGATIVE (NEGATIVE); MUDS CUTOFF CONCENTRATIONS CUTOFF CONC BELOW:; NITRITE,URINE NEGATIVE (NEGATIVE); OCCULT BLOOD,URINE TRACE-LYSE (NEGATIVE); PROTEIN,URINE NEGATIVE (NEGATIVE); UROBILINOGEN,URINE 0.2 (NORMAL) E.U./dL (NORMAL)
[2019-08-12 13:00] LABS: CLARITY,URINE CLEAR (CLEAR)
[2019-08-12 13:02] LABS: BASOPHILS % (AUTO) 0.5 %; EOSINOPHILS % (AUTO) 0.2 %; HGB - HEMOGLOBIN 11.1 g/dL (12.0-16.0); LYMPHOCYTES # (AUTO) 1.4 10^3/uL (1.5-3.5); LYMPHOCYTES % (AUTO) 20.3 %; MEAN CORPUSCULAR HEMOGLOBIN 27.3 pg (27.0-31.0); MEAN CORPUSCULAR HGB CONC 31.2 g/dL (32.0-36.0); MEAN CORPUSCULAR VOLUME 87.5 fL (81.0-99.0); MEAN PLATELET VOLUME 8.3 fL (7.9-10.8); MONOCYTES # (AUTO) 0.6 10^3/uL (0.0-1.0); MONOCYTES % (AUTO) 8.3 %; NEUTROPHILS # (AUTO) 4.7 10^3/uL (1.5-6.6); NEUTROPHILS % (AUTO) 70.2 %; PLT - PLATELET COUNT 603 10^3/uL (130-450); RED BLOOD COUNT 4.07 10^6/uL (4.20-5.40); RED CELL DISTRIBUTION WIDTH 16.4 % (12.0-15.0); WHITE BLOOD COUNT 6.7 x10^3/uL (4.8-10.8)
[2019-08-12 13:17] LABS: AMPHETAMINE SCREEN,URINE NEGATIVE (NEGATIVE); METHAMPHETAMINES SCREEN, URINE NEGATIVE (NEGATIVE); OPIATE SCREEN, URINE NEGATIVE (NEGATIVE)
[2019-08-12 13:18] LABS: BENZODIAZEPINES SCREEN, URINE NEGATIVE (NEGATIVE); COCAINE SCREEN URINE NEGATIVE (NEGATIVE); METHADONE SCREEN, URINE NEGATIVE (NEGATIVE); OXYCODONE SCREEN, URINE NEGATIVE (NEGATIVE); PROPOXYPHENE SCREEN, URINE NEGATIVE (NEGATIVE); TRICYCLIC ANTIDEPRESSANT,URINE NEGATIVE (NEGATIVE)
[2019-08-12 13:18] LABS: ACETAMINOPHEN < 10 ug/mL (10-30); ALBUMIN 3.2 g/dL (3.2-5.5); ALBUMIN/GLOBULIN RATIO 0.9 (1.0-2.2); ALKALINE PHOSPHATASE 112 IU/L (42-121); ALT ALANINE AMINOTRANSFERASE 11 IU/L (10-60); AST ASPARTATE AMINOTRANSFERASE 15 IU/L (10-42); BILIRUBIN,TOTAL 0.3 mg/dL (0.2-1.0); BUN - BLOOD UREA NITROGEN 9 mg/dL (6-20); CALCIUM 8.7 mg/dL (8.5-10.3); CARBON DIOXIDE - CO2 28 mmol/L (21-32); CHLORIDE 97 mmol/L (101-111); CREATININE 0.4 mg/dL (0.4-1.0); GFR - MDRD 161 (>89); GLUCOSE 87 mg/dL (70-100); LIPASE 32 U/L (22-51); SALICYLATE < 6.0 mg/dL; SODIUM 134 mmol/L (135-145); TOTAL PROTEIN 6.9 g/dL (6.7-8.2)
--- NOTE | 2019-08-12 13:35 | XRAY Report ---
Reason: chest pain Procedure Date: 08/12/2019 Accession Number: [id number] / [id number] Procedure: XR - Chest 1 View X-Ray CPT Code: 25996 Final Report FULL RESULT: EXAM: CHEST RADIOGRAPHY, PORTABLE 1 VIEW EXAM DATE: 08/12/2019 01:06 PM. CLINICAL HISTORY: Chest pain. COMPARISON: CHEST 2 VIEW 04/30/2019 8:46 AM. CHEST 2 VIEW 04/29/2019 6:36 PM and earlier studies. TECHNIQUE: 1251 hour AP upright portable view. FINDINGS: Lungs/Pleura: Small to moderate right pleural effusion, slightly increased from prior study. Moderate right-sided infiltrate, similar to prior exam. No pneumothorax. Left lung remains clear. Mediastinum: Heart size normal, without adenopathy or pulmonary vascular congestion. Other: Trachea deviated slightly to the left as previously, possibly due to patient position. Osseous structures unremarkable. IMPRESSION: Small to moderate right pleural effusion, probably slightly increased from 04/30/2019 study with persistent infiltrate right chest. Left lung remains clear. RADIA
--- NOTE | 2019-08-12 13:57 | CT Report ---
Reason: AMS, hx mesothelioma Procedure Date: 08/12/2019 Accession Number: [id number] / [id number] Procedure: CT - HEAD WO CPT Code: Final Report FULL RESULT: EXAM: CT HEAD EXAM DATE: 08/12/2019 01:25 PM. CLINICAL HISTORY: AMS, hx mesothelioma. COMPARISON: HEAD 08/20/2006 1:13 PM. TECHNIQUE: Multiaxial CT images were obtained from the foramen magnum to the vertex. Reformats: Sagittal and coronal. IV contrast: None. In accordance with CT protocol optimization, one or more of the following dose reduction techniques were utilized for this exam: automated exposure control, adjustment of mA and/or KV based on patient size, or use of iterative reconstructive technique. FINDINGS: Parenchyma: No intraparenchymal hemorrhage. No evidence of mass, midline shift, or CT findings of acute infarction. Left frontal encephalomalacia at site of previous surgery. Betancur-white differentiation is distinct. Extraaxial Spaces: Normal for age. No subdural or epidural collections. Ventricles: Normal in size and position. Sinuses and Orbits: Imaged paranasal sinuses, orbits, and mastoids show no significant abnormality. Bones: Old left frontal craniotomy. Otherwise unremarkable. Other: None. IMPRESSION: Chronic findings. No acute disease. RADIA
[2019-08-12 19:14] VITALS: BP 119/78
== END 2019-08-12 19:19 | disposition home or self-care (01) ==
LOC: EDUNIT# → ED 11:48
DX: R41.82 Altered mental status, unspecified (principal); E86.0 Dehydration; E87.1 Hypo-osmolality and hyponatremia; D64.9 Anemia, unspecified; J90 Pleural effusion, not elsewhere classified; Z86.018 Personal history of other benign neoplasm; F41.9 Anxiety disorder, unspecified
CPT/HCPCS: 36415; 70450; 71045; 80053; 80306; 80307; 80320; 80329; 81001; 81003; 83690; 84443; 85025; 87086; 99283; 99284

== ENCOUNTER 2019-08-13 14:15 | Emergency (ER) | payer OTHER ==
[2019-08-13] MEDS ORDERED: OLANZapine ODT 5 MG TABLET TL STA (14:31)
--- NOTE | 2019-08-13 14:33 | ED Physician Documentation ---
PD HPI MHE - Stated complaint Stated Complaint: MHE - Chief complaint Chief Complaint: MHE - History obtained from History obtained from: Patient, Family - History of Present Illness Primary symptom: Psychosis (64-year-old woman with remote history of some sort of mental breakdown 20 years ago and more recently she had has a history of mesothelioma. Over the last couple of days she has had episodes of agitated behavior, flight of ideas. She was seen yesterday for it, medical work-up was basically negative. I guess she got better without specific intervention but returns today much worse today) Review of Systems Unable to obtain: Uncooperative PD PAST MEDICAL HISTORY - Past Medical History Cardiovascular: None Respiratory: None Endocrine/Autoimmune: None GI: None : None Psych: Anxiety Musculoskeletal: None Derm: None - Past Surgical History Past Surgical History: Yes - Present Medications Home Medications: Ambulatory Orders Medication Instructions Recorded Confirmed Multivit-Min/Iron/Folic Acid/K 1 each PO DAILY 10/28/17 05/10/19 [Multi-Day Plus Minerals Tablet] Cholecalciferol (Vitamin D3) 1,000 unit PO DAILY 05/10/19 05/10/19 [Vitamin D3] Cyanocobalamin (Vitamin B-12) 2,000 mcg PO DAILY 05/10/19 05/10/19 [Vitamin B-12] L.acid/L.casei/B.bif/B.tammi/Fos 1 cap PO BID 05/10/19 05/10/19 [Probiotic Blend Capsule] - Allergies Allergies/Adverse Reactions: Allergies Allergy/AdvReac Type Severity Reaction Status Date / Time No Known Drug Allergies Allergy Verified 08/13/19 14:30 - Social History Does the pt smoke?: No Smoking Status: Never smoker - POLST Patient has POLST: No PD ED PE NORMAL - Vitals Vital signs reviewed: Yes - General General: Other (She is alert and oriented to person, she is very tangential to flight of ideas, hypervigilant.) - HEENT HEENT: PERRL, EOMI - Neck Neck: Supple, no meningeal sign, No bony TTP - Cardiac Cardiac: RRR, No murmur - Respiratory Respiratory: No respiratory distress, Other (Diminished at the right base) - Abdomen Abdomen: Soft, Non tender - Back Back: No CVA TTP, No spinal TTP - Derm Derm: Normal color, Warm and dry - Neuro Neuro: Other (She is alert and oriented to person, she really does not pay attention long enough to assess other orientation.) Eye Opening: Spontaneous Motor: Obeys Commands Verbal: Inappropriate GCS Score: 13 Results - Vitals Vitals: Vital Signs - 24 hr 08/13/19 08/13/19 14:20 19:40 Temperature 37.0 C 36.6 C Heart Rate 106 H 113 H Respiratory 15 16 Rate Blood Pressure 133/99 H 121/71 O2 Saturation 99 96 Oxygen O2 Source Room air - Labs Labs: Laboratory Tests 08/13/19 08/13/19 08/13/19 16:41 17:00 17:00 WBC 6.2 RBC 3.72 L Hgb 10.2 L Hct 32.6 L MCV 87.6 MCH 27.4 MCHC 31.3 L RDW 16.7 H Plt Count 479 H MPV 8.2 Neut # (Auto) 4.1 Lymph # (Auto) 1.5 [place] # (Auto) 0.5 Eos # (Auto) 0.0 Baso # (Auto) 0.0 Absolute Nucleated RBC 0.00 Nucleated RBC % 0.0 Sodium 136 Potassium 3.7 Chloride 101 Carbon Dioxide 29 Anion Gap 6.0 BUN 13 Creatinine 0.4 Estimated GFR (MDRD) 161 Glucose 164 H Calcium 8.5 Total Bilirubin 0.5 AST 12 ALT 10 Alkaline Phosphatase 93 Total Protein 6.3 L Albumin 2.9 L Globulin 3.4 Albumin/Globulin Ratio 0.9 L Lipase 32 Urine Color YELLOW Urine Clarity CLEAR Urine pH 5.5 Ur Specific [place] 1.010 Urine Protein NEGATIVE Urine Glucose (UA) NEGATIVE Urine Ketones NEGATIVE Urine Occult Blood SMALL H Urine Nitrite NEGATIVE Urine Bilirubin NEGATIVE Urine Urobilinogen 0.2 (NORMAL) Ur Leukocyte Esterase NEGATIVE Urine RBC 0-5 Urine WBC 0-3 Ur Epithelial Cells RARE Transitional Ur Squamous Epith Cells RARE Squamous Amorphous Sediment Few Urine Bacteria Few Urine Mucus Moderate Strands Ur Microscopic Review INDICATED Urine Culture Comments NOT INDICATED Salicylates < 6.0 Urine Opiates Screen NEGATIVE Ur Oxycodone Screen NEGATIVE Urine Methadone Screen NEGATIVE Ur Propoxyphene Screen NEGATIVE Acetaminophen < 10 L Ur Barbiturates Screen NEGATIVE Ur Tricyclics Screen NEGATIVE Ur Phencyclidine Scrn NEGATIVE Ur Amphetamine Screen NEGATIVE U Methamphetamines Scrn NEGATIVE U Benzodiazepines Scrn NEGATIVE Urine Cocaine Screen NEGATIVE U Cannabinoids Screen NEGATIVE Ethyl Alcohol < 5.0 PD MEDICAL DECISION MAKING - ED course ED course: 64-year-old woman presents with agitated behavior, somewhat manic although she has no history of this. After medication with Zyprexa and Ativan she was doing better and evaluated by the DCR who arranged for transport to [facility] for hospitalization under the care of Dr. Joey David. Cobras are completed. She is stable for transport for psychiatric care. Departure - Departure Disposition: 65 Psych Hosp/Unit DC/Xfer Clinical Impression: Psychiatric symptoms Condition: Stable
[2019-08-13] MEDS ORDERED: OLANZapine 10 MG VIAL IM STA (14:40)
[2019-08-13] MEDS ORDERED: LORazepam 1 MG TABLET PO STA (15:36)
[2019-08-13 16:46] LABS: MUDS CUTOFF CONCENTRATIONS CUTOFF CONC BELOW:
[2019-08-13 16:52] LABS: BILIRUBIN,URINE NEGATIVE (NEGATIVE); GLUCOSE, URINE (UA) NEGATIVE (NEGATIVE); KETONES,URINE (UA) NEGATIVE (NEGATIVE); LEUKOCYTE ESTERASE, URINE NEGATIVE (NEGATIVE); NITRITE,URINE NEGATIVE (NEGATIVE); OCCULT BLOOD,URINE SMALL (NEGATIVE); PH,URINE 5.5 PH (5.0-7.5); PROTEIN,URINE NEGATIVE (NEGATIVE); UROBILINOGEN,URINE 0.2 (NORMAL) E.U./dL (NORMAL)
[2019-08-13 16:57] LABS: CLARITY,URINE CLEAR (CLEAR)
[2019-08-13 17:07] LABS: AMPHETAMINE SCREEN,URINE NEGATIVE (NEGATIVE); BENZODIAZEPINES SCREEN, URINE NEGATIVE (NEGATIVE); COCAINE SCREEN URINE NEGATIVE (NEGATIVE); METHADONE SCREEN, URINE NEGATIVE (NEGATIVE); METHAMPHETAMINES SCREEN, URINE NEGATIVE (NEGATIVE); OPIATE SCREEN, URINE NEGATIVE (NEGATIVE); OXYCODONE SCREEN, URINE NEGATIVE (NEGATIVE); PROPOXYPHENE SCREEN, URINE NEGATIVE (NEGATIVE); TRICYCLIC ANTIDEPRESSANT,URINE NEGATIVE (NEGATIVE)
[2019-08-13 17:10] LABS: BASOPHILS % (AUTO) 0.3 %; EOSINOPHILS % (AUTO) 0.3 %; HGB - HEMOGLOBIN 10.2 g/dL (12.0-16.0); LYMPHOCYTES # (AUTO) 1.5 10^3/uL (1.5-3.5); LYMPHOCYTES % (AUTO) 24.5 %; MEAN CORPUSCULAR HEMOGLOBIN 27.4 pg (27.0-31.0); MEAN CORPUSCULAR HGB CONC 31.3 g/dL (32.0-36.0); MEAN CORPUSCULAR VOLUME 87.6 fL (81.0-99.0); MEAN PLATELET VOLUME 8.2 fL (7.9-10.8); MONOCYTES # (AUTO) 0.5 10^3/uL (0.0-1.0); MONOCYTES % (AUTO) 7.7 %; NEUTROPHILS # (AUTO) 4.1 10^3/uL (1.5-6.6); NEUTROPHILS % (AUTO) 66.7 %; PLT - PLATELET COUNT 479 10^3/uL (130-450); RED BLOOD COUNT 3.72 10^6/uL (4.20-5.40); RED CELL DISTRIBUTION WIDTH 16.7 % (12.0-15.0); WHITE BLOOD COUNT 6.2 x10^3/uL (4.8-10.8)
[2019-08-13 17:14] LABS: RBC,URINE 0-5 /HPF (0-5); SQUAMOUS EPITHELIAL CELL,UR RARE Squamous (<= Few)
[2019-08-13 17:15] LABS: AMORPHOUS SEDIMENT,UR Few /LPF; BACTERIA,URINE Few /HPF (None Seen); EPITHELIAL CELLS,UR RARE Transitional /HPF (<= Few); MUCUS,URINE Moderate Strands
[2019-08-13 17:26] LABS: ACETAMINOPHEN < 10 ug/mL (10-30); ALBUMIN 2.9 g/dL (3.2-5.5); ALBUMIN/GLOBULIN RATIO 0.9 (1.0-2.2); ALKALINE PHOSPHATASE 93 IU/L (42-121); ALT ALANINE AMINOTRANSFERASE 10 IU/L (10-60); AST ASPARTATE AMINOTRANSFERASE 12 IU/L (10-42); BILIRUBIN,TOTAL 0.5 mg/dL (0.2-1.0); BUN - BLOOD UREA NITROGEN 13 mg/dL (6-20); CALCIUM 8.5 mg/dL (8.5-10.3); CARBON DIOXIDE - CO2 29 mmol/L (21-32); CHLORIDE 101 mmol/L (101-111); CREATININE 0.4 mg/dL (0.4-1.0); GFR - MDRD 161 (>89); GLUCOSE 164 mg/dL (70-100); LIPASE 32 U/L (22-51); SALICYLATE < 6.0 mg/dL; SODIUM 136 mmol/L (135-145); TOTAL PROTEIN 6.3 g/dL (6.7-8.2)
[2019-08-13 22:25] VITALS: BP 113/79
== END 2019-08-13 22:31 ==
LOC: ED 14:15
DX: F30.2 Manic episode, severe with psychotic symptoms (principal); Z86.018 Personal history of other benign neoplasm
CPT/HCPCS: 36415; 80053; 80320; 80329; 81001; 83690; 85025; 96372; 99281; 99285; A9270; J8499; 80306; 80307; 81003; 87086

== ENCOUNTER 2019-08-18 10:32 | Outpatient (CLI) | payer OTHER | END 2019-08-18 10:33 | disposition critical access hospital (66) | LOC: EMS 10:32 | PROVIDERS: ATTEND Surgery | DX: R46.89 Other symptoms and signs involving appearance and behavior (principal); R41.82 Altered mental status, unspecified | CPT/HCPCS: A0425; A0429 ==

== ENCOUNTER 2019-08-18 11:09 | Emergency (ER) | payer OTHER ==
[2019-08-18 11:44] LABS: BASOPHILS % (AUTO) 0.5 %; EOSINOPHILS % (AUTO) 0.7 %; HGB - HEMOGLOBIN 9.6 g/dL (12.0-16.0); LYMPHOCYTES # (AUTO) 1.6 10^3/uL (1.5-3.5); LYMPHOCYTES % (AUTO) 34.9 %; MEAN CORPUSCULAR HEMOGLOBIN 27.8 pg (27.0-31.0); MEAN CORPUSCULAR HGB CONC 31.7 g/dL (32.0-36.0); MEAN CORPUSCULAR VOLUME 87.8 fL (81.0-99.0); MEAN PLATELET VOLUME 8.3 fL (7.9-10.8); MONOCYTES # (AUTO) 0.4 10^3/uL (0.0-1.0); MONOCYTES % (AUTO) 9.5 %; NEUTROPHILS # (AUTO) 2.4 10^3/uL (1.5-6.6); NEUTROPHILS % (AUTO) 54.2 %; PLT - PLATELET COUNT 419 10^3/uL (130-450); RED BLOOD COUNT 3.45 10^6/uL (4.20-5.40); RED CELL DISTRIBUTION WIDTH 16.9 % (12.0-15.0); WHITE BLOOD COUNT 4.4 x10^3/uL (4.8-10.8)
[2019-08-18 11:51] LABS: BILIRUBIN,URINE NEGATIVE (NEGATIVE); GLUCOSE, URINE (UA) NEGATIVE (NEGATIVE); KETONES,URINE (UA) NEGATIVE (NEGATIVE); LEUKOCYTE ESTERASE, URINE TRACE (NEGATIVE); MUDS CUTOFF CONCENTRATIONS CUTOFF CONC BELOW:; NITRITE,URINE NEGATIVE (NEGATIVE); OCCULT BLOOD,URINE SMALL (NEGATIVE); PROTEIN,URINE NEGATIVE (NEGATIVE); UROBILINOGEN,URINE 0.2 (NORMAL) E.U./dL (NORMAL)
[2019-08-18 11:55] LABS: CLARITY,URINE CLEAR (CLEAR)
[2019-08-18 11:56] LABS: AMPHETAMINE SCREEN,URINE NEGATIVE (NEGATIVE); BENZODIAZEPINES SCREEN, URINE NEGATIVE (NEGATIVE); COCAINE SCREEN URINE NEGATIVE (NEGATIVE); METHADONE SCREEN, URINE NEGATIVE (NEGATIVE); METHAMPHETAMINES SCREEN, URINE NEGATIVE (NEGATIVE); OPIATE SCREEN, URINE NEGATIVE (NEGATIVE); OXYCODONE SCREEN, URINE NEGATIVE (NEGATIVE); PROPOXYPHENE SCREEN, URINE NEGATIVE (NEGATIVE); TRICYCLIC ANTIDEPRESSANT,URINE NEGATIVE (NEGATIVE)
[2019-08-18 11:58] LABS: ACETAMINOPHEN < 10 ug/mL (10-30); ALBUMIN/GLOBULIN RATIO 0.8 (1.0-2.2); ALKALINE PHOSPHATASE 96 IU/L (42-121); ALT ALANINE AMINOTRANSFERASE 16 IU/L (10-60); AST ASPARTATE AMINOTRANSFERASE 18 IU/L (10-42); BILIRUBIN,TOTAL 0.7 mg/dL (0.2-1.0); BUN - BLOOD UREA NITROGEN 12 mg/dL (6-20); CALCIUM 8.6 mg/dL (8.5-10.3); CARBON DIOXIDE - CO2 28 mmol/L (21-32); CHLORIDE 97 mmol/L (101-111); CREATININE 0.4 mg/dL (0.4-1.0); GFR - MDRD 161 (>89); GLUCOSE 100 mg/dL (70-100); LIPASE 28 U/L (22-51); SALICYLATE < 6.0 mg/dL; SODIUM 134 mmol/L (135-145); TOTAL PROTEIN 6.6 g/dL (6.7-8.2)
[2019-08-18 12:02] LABS: RBC,URINE 0-5 /HPF (0-5)
[2019-08-18 12:03] LABS: BACTERIA,URINE Rare /HPF (None Seen); SQUAMOUS EPITHELIAL CELL,UR NONE SEEN (<= Few)
--- NOTE | 2019-08-18 12:04 | ED Physician Documentation ---
PD HPI MHE - Stated complaint Stated Complaint: MHE - Chief complaint Chief Complaint: MHE - History obtained from History obtained from: Patient, Family - History of Present Illness Primary symptom: Psychosis (The patient is having delusional thoughts with the idea of seeing things she had an really seen in having thoughts of her and wanting to inappropriately bring her to the hospital when the patient felt that her was actually the one who is depressed and having problems. The patient was wandering around the house without purpose and was not able to really explain what she is trying to do. She had similar symptoms over the past week or more and had been increasingly worse. She was here in the ER 5 days ago with similar symptoms and had negative medical work-up including head CT scan. She was seen by social work and [facility] and elected to go voluntarily for hospitalization. Being voluntary, she supposed he was able to sign out prior to the suggested course of treatment and had elected not to be taking her medicines at home. She is having symptoms worsening again and her brings her in. He is concerned that she is unable to care for herself and had been doing potentially dangerous actions such as turning on the stove without purpose of cooking and wandering away unawares.). No: Suicidal ideation, Suicide attempt Timing - onset: How many weeks ago (1-2) Contributing factors: Off meds (She was prescribed 2 medications from her recent hospitalization and was not taking them according to her . He did get her to take 1 tablet yesterday and seemed to be effective in calming her down and being less manic but she refused to take any further ones). No: Substance abuse - ETOH, Substance abuse - drugs Similar symptoms before: Has not had sx before (This is a new process for her. Apparently may have been some history of depression in the past but no manic episodes.) Recently seen: Emergency Dept, Admitted ([facility] [place] but only stayed there for 2 days.) Review of Systems Constitutional: denies: Fever Nose: denies: Rhinorrhea / runny nose, Congestion Throat: denies: Sore throat Respiratory: reports: Dyspnea (Due to lung cancer.), Cough GI: denies: Abdominal Pain, Vomiting, Diarrhea : denies: Dysuria Musculoskeletal: denies: Neck pain, Back pain Neurologic: denies: Generalized weakness, Confused, Headache, Head injury Psychiatric: reports: Suicidal, Delusions. denies: Homicidal (made vague statements, according to and EMS, about "no reason to live", but not direct plan/ideas per se.) Endocrine: reports: Weight loss Immunocompromised: denies: Immunocompromised PD PAST MEDICAL HISTORY - Past Medical History Past Medical History: Yes Cardiovascular: None Respiratory: None Neuro: None Endocrine/Autoimmune: None GI: None : None HEENT: None Psych: Anxiety Musculoskeletal: None Derm: None - Past Surgical History Past Surgical History: Yes - Present Medications Home Medications: Ambulatory Orders Medication Instructions Recorded Confirmed Multivit-Min/Iron/Folic Acid/K 1 each PO DAILY 10/28/17 08/18/19 [Multi-Day Plus Minerals Tablet] Cholecalciferol (Vitamin D3) 1,000 unit PO DAILY 05/10/19 08/18/19 [Vitamin D3] Cyanocobalamin (Vitamin B-12) 2,000 mcg PO DAILY 05/10/19 08/18/19 [Vitamin B-12] L.acid/L.casei/B.bif/B.tammi/Fos 1 cap PO BID 05/10/19 08/18/19 [Probiotic Blend Capsule] Risperidone [Risperdal] 1 mg PO DAILY 08/18/19 08/18/19 - Allergies Allergies/Adverse Reactions: Allergies Allergy/AdvReac Type Severity Reaction Status Date / Time No Known Drug Allergies Allergy Verified 08/18/19 11:21 - Social History Does the pt smoke?: No Smoking Status: Never smoker Does the pt drink ETOH?: No Does the pt have substance abuse?: No - Immunizations Immunizations are current?: Yes - POLST Patient has POLST: No PD ED PE NORMAL - Vitals Vital signs reviewed: Yes - General General: Alert and oriented X 3, No acute distress, Well developed/nourished - Neck Neck: Supple, no meningeal sign, No adenopathy - Cardiac Cardiac: RRR, No murmur - Respiratory Respiratory: Clear bilaterally - Derm Derm: Normal color - Extremities Extremities: No edema, No calf tenderness / cord - Neuro Neuro: Alert and oriented X 3, No motor deficit, No sensory deficit, Normal speech Eye Opening: Spontaneous Motor: Obeys Commands Verbal: Oriented GCS Score: 15 - Psych Psych: Other (She is awake alert and conversant. She feels that her is actually having the problems and not her. She has tangential thought process. Slight pressure in his speech. She has tangential or somewhat nonsensical thought process and that she jumps from topic to topic without even seem to have a connection. She will talk more focus slowly at times. She states that she did not feel that a psychiatric facility was helpful and that was why she left. She does not feel that she needs help or has a problem.) Results - Vitals Vitals: Vital Signs - 24 hr 08/18/19 11:16 Temperature 36.7 C Heart Rate 98 Respiratory 14 Rate Blood Pressure 139/86 H O2 Saturation 98 Oxygen O2 Source Room air - Labs Labs: Laboratory Tests 08/18/19 08/18/19 08/18/19 11:30 11:38 11:38 WBC 4.4 L RBC 3.45 L Hgb 9.6 L Hct 30.3 L MCV 87.8 MCH 27.8 MCHC 31.7 L RDW 16.9 H Plt Count 419 MPV 8.3 Neut # (Auto) 2.4 Lymph # (Auto) 1.6 [place] # (Auto) 0.4 Eos # (Auto) 0.0 Baso # (Auto) 0.0 Absolute Nucleated RBC 0.00 Nucleated RBC % 0.0 Sodium 134 L Potassium 3.7 Chloride 97 L Carbon Dioxide 28 Anion Gap 9.0 BUN 12 Creatinine 0.4 Estimated GFR (MDRD) 161 Glucose 100 Calcium 8.6 Total Bilirubin 0.7 AST 18 ALT 16 Alkaline Phosphatase 96 Total Protein 6.6 L Albumin 3.0 L Globulin 3.6 Albumin/Globulin Ratio 0.8 L Lipase 28 TSH Urine Color YELLOW Urine Clarity CLEAR Urine pH 7.0 Ur Specific [place] 1.010 Urine Protein NEGATIVE Urine Glucose (UA) NEGATIVE Urine Ketones NEGATIVE Urine Occult Blood SMALL H Urine Nitrite NEGATIVE Urine Bilirubin NEGATIVE Urine Urobilinogen 0.2 (NORMAL) Ur Leukocyte Esterase TRACE H Urine RBC 0-5 Urine WBC 4-5 Ur Squamous Epith Cells NONE SEEN Urine Bacteria Rare Ur Microscopic Review INDICATED Urine Culture Comments INDICATED Salicylates < 6.0 Urine Opiates Screen NEGATIVE Ur Oxycodone Screen NEGATIVE Urine Methadone Screen NEGATIVE Ur Propoxyphene Screen NEGATIVE Acetaminophen < 10 L Ur Barbiturates Screen NEGATIVE Ur Tricyclics Screen NEGATIVE Ur Phencyclidine Scrn NEGATIVE Ur Amphetamine Screen NEGATIVE U Methamphetamines Scrn NEGATIVE U Benzodiazepines Scrn NEGATIVE Urine Cocaine Screen NEGATIVE U Cannabinoids Screen NEGATIVE Ethyl Alcohol < 5.0 08/18/19 11:38 WBC RBC Hgb Hct MCV MCH MCHC RDW Plt Count MPV Neut # (Auto) Lymph # (Auto) [place] # (Auto) Eos # (Auto) Baso # (Auto) Absolute Nucleated RBC Nucleated RBC % Sodium Potassium Chloride Carbon Dioxide Anion Gap BUN Creatinine Estimated GFR (MDRD) Glucose Calcium Total Bilirubin AST ALT Alkaline Phosphatase Total Protein Albumin Globulin Albumin/Globulin Ratio Lipase TSH 3.17 Urine Color Urine Clarity Urine pH Ur Specific [place] Urine Protein Urine Glucose (UA) Urine Ketones Urine Occult Blood Urine Nitrite Urine Bilirubin Urine Urobilinogen Ur Leukocyte Esterase Urine RBC Urine WBC Ur Squamous Epith Cells Urine Bacteria Ur Microscopic Review Urine Culture Comments Salicylates Urine Opiates Screen Ur Oxycodone Screen Urine Methadone Screen Ur Propoxyphene Screen Acetaminophen Ur Barbiturates Screen Ur Tricyclics Screen Ur Phencyclidine Scrn Ur Amphetamine Screen U Methamphetamines Scrn U Benzodiazepines Scrn Urine Cocaine Screen U Cannabinoids Screen Ethyl Alcohol PD MEDICAL DECISION MAKING - ED course Complexity details: reviewed old records, reviewed results, considered differential (Does seem like some tangential thought process and poor focus but she is awake and alert so seems more manic behavior and not delirium.), d/w patient, d/w construction safety consultant (Social Work then [facility], who felt patient was detainable based on history and family reporting.) Departure - Departure Disposition: 65 Psych Hosp/Unit DC/Xfer Clinical Impression: Manic behavior, Grave disability Condition: Stable Record reviewed to determine appropriate education?: Yes
[2019-08-18] MEDS ORDERED: OLANZapine ODT 5 MG TABLET TL ONE (17:15)
[2019-08-18 18:43] VITALS: BP 150/86
[2019-08-18] MEDS ORDERED: risperiDONE 1 MG TABLET PO STA (18:50)
== END 2019-08-18 19:48 ==
LOC: EDUNIT# → ED 11:09
DX: F30.9 Manic episode, unspecified (principal); Z91.128 Patient's intentional underdosing of medication regimen for other reason
CPT/HCPCS: 36415; 80320; 80329; 81001; 83690; 87077; 87086; 87181; 99283; 99285; A9270; 80053; 80306; 80307; 81003; 84443; 85025